=== PATIENT | female | born 1960 | race Caucasian/White ===

== ENCOUNTER 2022-04-08 17:28 | Emergency (ER) | payer BC ==
[2022-04-08 22:35] LABS: ESTIMATED GFR 56 mL/min (>60); TROPONIN I HIGH SENSITIVITY 11.4 pg/mL (<=60.3)
[2022-04-08] MEDS ORDERED: Sodium Chloride 0.9% 10 ML Syringe FLUSH PRN (23:15)
[2022-04-08] MEDS ORDERED: Sodium Chloride 0.9% 1,000 ML IV SCH (23:15)
[2022-04-09] MEDS ORDERED: Iopamidol 755 Mg/ML 100 ML Bottle IV STA (00:04)
[2022-04-09] MEDS ORDERED: Sodium Chloride 0.9% 50 ML IV STA (00:05)
== END 2022-04-09 01:30 | disposition home or self-care (01) ==
LOC: JP.ED 17:28
DX: R53.83 Other fatigue (principal); E03.9 Hypothyroidism, unspecified; F17.210 Nicotine dependence, cigarettes, uncomplicated; Z88.5 Allergy status to narcotic agent; Z79.899 Other long term (current) drug therapy
CPT/HCPCS: 36415; 71046; 71275; 80053; 83605; 83690; 83880; 84484; 85025; 85379; 85651; 86140; 87635; 96360; 99284; J3490; J7030; Q9967; U0002